=== PATIENT | female | born 1970 ===

== ENCOUNTER 2024-04-16 10:40 | Outpatient (AMB) | payer OTHER, SELFPAY ==
--- NOTE | 2024-04-16 10:40 | MHC.OFFVIS ---
Vital Signs 04/16/24 10:42 Height 5 ft 0.5 in Weight 140 lb 8 oz BMI 27.0 BP 128/82 Blood Pressure Location Lt brachial Position Sitting Pulse 75 Pulse Source Pulse Oximeter Pulse Oximetry (%) 98 Oxygen Delivery Method Room Air Intake Visit Reasons: cough/sore throat Allergies No Known Allergies Allergy (Verified 04/16/24 10:43) HPI HPI cough/sore throat: Details: Cynthia is a pleasant 54-year-old female, never smoker with underlying asthma and GERD. She was referred by PCP for pulmonary evaluation. She reports persistent dry cough and right-sided throat discomfort after a viral URI in February. She was treated with doxycycline as she had accompanied sinus symptoms as well as cough syrup and antihistamines with minimal effect. CXR unremarkable. She denies fevers, chills or sick contacts. She does have asthma and has previously been prescribed albuterol however she has not used in quite some time. She has GERD but reports good control with omeprazole. She reports seasonal allergies, no pets and no recent allergy testing. She reports asthma was diagnosed as an adult, never requiring intubation. She denies any occupational exposures, however did work environment where there was known mold times 6 years. She reports multiple first-degree family members with asthma and allergies. [facility] Social History (Updated 04/16/24 @ 10:43 by Jayashree Lundy [facility]) Patient Tobacco Use Status: Never used Tobacco Review of Systems Const Denies chills, Denies excessive sweating, Denies fever(s), Denies headache(s) and Denies night sweats Eyes Denies dry eyes, Denies irritation and Denies itchy eyes ENT Reports Normal hearing present, Denies headache(s), Denies nasal congestion, Denies nasal discharge and Denies post nasal drip Card Denies chest pain, Denies chest pain at rest, Denies chest pain with activity, Denies claudication, Denies leg edema, Denies orthopnea and Denies paroxysmal nocturnal dyspnea Resp Denies chest congestion, Denies excessive phlegm production, Denies pain on inspiration, Denies pain with cough, Denies stridor and Denies wheezing Musc Denies myalgias Neuro Reports Normal hearing present and Denies headache(s) Endo Denies excessive sweating Maximiliano/Lymph Denies lymphadenopathy Aller/Immun Denies itchy eyes, Denies seasonal rhinorrhea and Denies wheezing Physical Exam Vital Signs: Last Vital Signs Pulse 75 04/16/24 10:42 BP 128/82 04/16/24 10:42 Pulse Ox 98 04/16/24 10:42 Oxygen Delivery Method Room Air 04/16/24 10:42 BMI result Body Mass Index 27.0 Const General: cooperative, healthy appearing, comfortable, no acute distress, well developed and alert Orientation/consciousness: patient oriented x3 Limitations: no limitations HEENT Head: Yes normal to inspection, Yes normocephalic and Yes atraumatic Ears: hearing grossly normal bilaterally and external ears normal Eyes General: appearance normal, both eyes and all related structures Eyelids: Yes eyelids normal Sclerae: sclerae normal EOM: EOMs intact bilaterally Neck Neck: Yes normal visual inspection and Yes no lymphadenopathy Lymphatic: no lymphadenopathy noted Chest Chest palpation & inspection: normal inspection of the chest Resp Effort & Inspection: normal respiratory effort, able to speak in complete sentences, no audible wheezes, no cough, no stridor, not tachypneic, no tripod positioning and no use of accessory muscles Auscultation: clear to auscultation bilaterally Cardio Jugular venous distension: no JVD Rate: regular rate Rhythm: regular rhythm Skin Other: warm, dry General skin exam: no rashes or lesions noted Neuro General: patient oriented x3 Cranial nerves: Yes Normal hearing present Cognition (Neuro): normal cognition Gait exam (Neuro): Normal gait present Extrem General: Yes normal to inspection, Yes capillary refill normal, Yes no clubbing, cyanosis or edema and Yes no pedal edema Psych Appearance: grossly normal and well kempt Speech and movement: Normal speech and movement present and Clear speech present Affect: normal affect Attitude: cooperative Thought process: Normal thought process present Thought content: Normal thought content present Insight: Good insight present (Psych) Judgement: Good judgement present (Psych) Assessment & Plan Assessment & Plan (1) Asthma: Code(s): J45.909 - Unspecified asthma, uncomplicated Category: Medical (2) Cough: Code(s): R05.9 - Cough, unspecified Category: Medical (3) Environmental allergies: Code(s): Z91.09 - Other allergy status, other than to drugs and biological substances Category: Medical Plan Cynthia's symptoms are likely related to underlying asthma. Advised to use albuterol and will consider ICS at the next visit. CXR unremarkable, will reassess need for further imaging after trial of albuterol/ICS. Will send for PFT as well as RAST to assessment allergic component. All questions were answered and patient is in agreement of plan. Will follow-up in 4-6 weeks or sooner if needed. Orders: Orders Immunoglobulin E 04/16/24 Z91.09 - Other allergy status, other than to drugs and biological substances Resp Allergy Profile Region I 04/16/24 Z91.09 - Other allergy status, other than to drugs and biological substances Medications: New albuterol sulfate 90 mcg/actuation 2 puffs inhalation Q4-6H PRN 1 ea 0RF shortness of breath or wheezing Coding Level of Care Code New Pt Level 4 (08304) Diagnoses Asthma J45.909 Cough R05.9 Environmental allergies Z91.09
[2024-04-16 10:42] VITALS: BP 128/82; PULSE 75; O2SAT 98; BMI 27.0
== END 2024-04-16 11:13 | disposition home or self-care (01) ==
PROVIDERS: PCP Internal Medicine; Referring Provider Internal Medicine; Visit Provider Nurse Practitioner Family
DX: J45.909 Unspecified asthma, uncomplicated (principal); R05.9 Cough, unspecified; Z91.09 Other allergy status, other than to drugs and biological substances
CPT/HCPCS: 99204

== ENCOUNTER 2024-04-16 11:16 | Outpatient (REF) | payer OTHER, SELFPAY ==
[2024-04-19 21:08] LABS: Class Alternaria alternata 0; Class Aspergillus fumigatus 0/1; Class Bermuda Grass 0/1; Class Birch 0/1; Class Cat Dander 5; Class Cladosporium herbarum 0/1; Class Cockroach 3; Class Common Ragweed 3; Class Cottonwood 0/1; Class Derm. pterony 2; Class Dermatophagoides farinae 2; Class Dog Dander 2; Class Elm 0/1; Class Maple Box Elder 0/1; Class Mountain Cedar 0/1; Class Mouse Urine Protein 0; Class Mugwort 2; Class Oak 3; Class Penicillium crysogenum 0; Class Rough Pigweed 0; Class Sheep Sorrel 0; Class Sycamore 0/1; Class Timothy Grass 0/1; Class Walnut Tree 0/1; Class White Ash 0/1; Class White Mulberry 0; D001 IgE D pteronyssinus 2.55 kU/L; D002 - IgE D farinae 3.22 kU/L; E005 - IgE Dog Dander 1.28 kU/L; E072-IgE Mouse Urine <0.10 kU/L; G002 IgE Bermuda Grass 0.19 kU/L; I006-IgE Cockroach, German 4.08 kU/L; Immunoglobulin E 3389 kU/L (<OR=114); M001 IgE Penicillium chrysogen <0.10 kU/L; M002 - IgE Cladosporium herbar 0.14 kU/L; M003 - IgE Aspergillus fumigat 0.17 kU/L; M006 - IgE Alternaria alternat <0.10 kU/L; T006 - IgE Cedar, Mountain 0.26 kU/L; T007 - IgE Oak, White 3.57 kU/L; T008 IgE Elm, American 0.25 kU/L; T010 - IgE Walnut 0.19 kU/L; T011 - IgE Maple Leaf Sycamore 0.11 kU/L; T015 - IgE Ash, White 0.33 kU/L; T070 - IgE White Mulberry <0.10 kU/L; W001 - IgE Ragweed, Short 5.94 kU/L; W006 - IgE Mugwort 1.14 kU/L; W014 IgE Pigweed, Common <0.10 kU/L; W018 IgE Sheep Sorrel <0.10 kU/L
== END 2024-04-16 11:17 | disposition home or self-care (01) ==
LOC: HO.WFDLDS 11:16
PROVIDERS: Visit Provider Nurse Practitioner Family
DX: Z91.09 Other allergy status, other than to drugs and biological substances (principal)
CPT/HCPCS: 36415; 82785; 86003